=== PATIENT | male | born 1960 | race Caucasian/White ===

== ENCOUNTER 2018-01-24 11:01 | Inpatient (IN) | payer OTHER, MEDICAID ==
[~2018-01-24] VITALS: Ht 167.6 cm; Wt 63.3 kg
[2018-01-24 11:09] VITALS: Ht 167.6 cm; Wt 63.3 kg
[2018-01-24 11:44] LABS: BASOPHIL % 0.2 % (0-2); PLATELET COUNT 252 x10^3mcL (130-400)
[2018-01-24 11:48] LABS: RED CELL DISTRIBUTION WIDTH 15.5 % (11.5-14.5)
[2018-01-24 11:55] LABS: CALCIUM 8.5 mg/dL (8.5-10.1); CARBON DIOXIDE 16.3 mmol/L (21-32); CHLORIDE SERUM 106 mmol/L (98-107); CREATININE SERUM 1.3 mg/dL (0.7-1.3); GFR1 > 60 mL/min; GLUCOSE SERUM 112 mg/dL (74-106); POTASSIUM SERUM 4.7 mmol/L (3.5-5.1); SODIUM SERUM 145 mmol/L (136-145)
[2018-01-24 11:59] LABS: ALBUMIN 3.9 g/dL (3.4-5.0); ALKALINE PHOSPHATASE 107 U/L (46-116); ALT/SGPT 20 U/L (16-63); AST/SGOT 18 U/L (15-37); BILIRUBIN TOTAL 0.43 mg/dL (0.20-1.00); LIPASE 51 IU/L (73-393); TOTAL PROTEIN, SERUM 7.9 g/dL (6.4-8.2)
[2018-01-24] MEDS ORDERED: LEXAPRO20 MG PO (13:14)
[2018-01-24] MEDS ORDERED: METOPROLOL TAR100 MG PO (13:15)
[2018-01-24] MEDS ORDERED: FLO4 (13:15)
[2018-01-24] MEDS ORDERED: FLO4 PO (13:16)
[2018-01-24] MEDS ORDERED: TRAZODONE50 M1 PO (13:17)
[2018-01-24 14:36] LABS: CHOLESTEROL/HDL RATIO 3.3; MAGNESIUM 1.8 mg/dL (1.8-2.4); PHOSPHOROUS 4.4 mg/dL (2.5-4.9)
[2018-01-24 14:44] LABS: T3 TOTAL 1.73 ng/mL
[2018-01-24 14:45] VITALS: BP 118/49
[2018-01-24 15:09] LABS: FREE T4 1.47 ng/dL (0.76-1.46); T4(THYROXINE) 11.2 ug/dL (4.7-13.3)
[2018-01-24 15:53] VITALS: BP 118/49
[2018-01-24 17:32] LABS: UA SPECIFIC GRAVITY 1.025 (1.005-1.035); microscopic required? YES; urine erythrocyte TRACE (NEGATIVE)
[2018-01-24 17:48] LABS: AMPHETAMINE QUAL UR NONE DETECTED (NEG <=1000)
[2018-01-24 18:15] VITALS: BP 109/44
[2018-01-24 21:25] VITALS: BP 108/53
[2018-01-25 06:06] VITALS: BP 118/55
[2018-01-25 06:10] LABS: CALCIUM 7.7 mg/dL (8.5-10.1); CHLORIDE SERUM 112 mmol/L (98-107); CREATININE SERUM 0.9 mg/dL (0.7-1.3); GFR1 > 60 mL/min; GLUCOSE SERUM 120 mg/dL (74-106); POTASSIUM SERUM 3.8 mmol/L (3.5-5.1); SODIUM SERUM 145 mmol/L (136-145)
[2018-01-25 06:16] LABS: BASOPHIL % 0.3 % (0-2); PLATELET COUNT 148 x10^3mcL (130-400)
[2018-01-25 07:20] VITALS: BP 100/60
[2018-01-25 07:34] LABS: RED CELL DISTRIBUTION WIDTH 15.8 % (11.5-14.5)
[2018-01-25 09:26] VITALS: BP 94/46
[2018-01-25 12:00] VITALS: BP 105/48
[2018-01-25 17:25] VITALS: BP 112/57
[2018-01-25 22:01] VITALS: BP 143/54
[2018-01-26 05:54] VITALS: BP 147/75
[2018-01-26 06:24] LABS: CARBON DIOXIDE 27.2 mmol/L (21-32); CHLORIDE SERUM 111 mmol/L (98-107); CREATININE SERUM 0.9 mg/dL (0.7-1.3); GFR1 > 60 mL/min; GLUCOSE SERUM 110 mg/dL (74-106); POTASSIUM SERUM 4.3 mmol/L (3.5-5.1); SODIUM SERUM 146 mmol/L (136-145)
[2018-01-26 06:44] LABS: BASOPHIL % 0.6 % (0-2); PLATELET COUNT 155 x10^3mcL (130-400)
[2018-01-26 06:45] LABS: RED CELL DISTRIBUTION WIDTH 15.7 % (11.5-14.5)
[2018-01-26 09:18] VITALS: BP 147/56
[2018-01-26 12:32] VITALS: BP 137/64
[2018-01-26] MEDS ORDERED: LIPITOR80 MG PO (14:33)
[2018-01-26] MEDS ORDERED: ECO81 PO (14:34)
[2018-01-26] MEDS ORDERED: ATIVAN1 MG PO (14:35)
[2018-01-26] MEDS ORDERED: FOL1 PO (15:10)
[2018-01-26] MEDS ORDERED: THI100 PO (15:10)
[2018-01-26 15:29] VITALS: BP 137/64
== END 2018-01-26 16:20 | disposition home or self-care (01) | DRG 896 ==
LOC: ED 11:01 → DU 12:51
PROVIDERS: Emergency Medicine; Family Medicine
DX: F10.229 Alcohol dependence with intoxication, unspecified (principal); G92 Toxic encephalopathy; N17.0 Acute kidney failure with tubular necrosis; E87.2 Acidosis; F33.1 Major depressive disorder, recurrent, moderate; Z68.1 Body mass index [BMI] 19.9 or less, adult; F10.239 Alcohol dependence with withdrawal, unspecified; E86.0 Dehydration; E02 Subclinical iodine-deficiency hypothyroidism; D64.9 Anemia, unspecified; I10 Essential (primary) hypertension; R31.9 Hematuria, unspecified; Y90.9 Presence of alcohol in blood, level not specified; N40.0 Benign prostatic hyperplasia without lower urinary tract symptoms; F17.210 Nicotine dependence, cigarettes, uncomplicated; F14.21 Cocaine dependence, in remission; F11.21 Opioid dependence, in remission
CPT/HCPCS: 36600; 83880; 84425; 84439; 94150; G0480; J2405; J2543; J3490; J7030; J7620; Q0092